=== PATIENT | female | born 1990 | race Caucasian/White ===

== ENCOUNTER 2021-09-07 12:55 | Emergency (ER) | payer MEDICAID, SELFPAY ==
[2021-09-07 13:08] VITALS: BP 122/70; BP 133/71; PULSE 68; PULSE 72; RESP 18; TEMP 37; O2SAT 96; O2SAT 97; BMI 25.7
--- NOTE | 2021-09-07 13:23 | ED.ABDPAIN ---
HPI - Abdominal Pain General Chief Complaint: Abdominal Pain Stated Complaint: NAUSEA AND VOMITING Time Seen by Provider: 09/07/21 13:16 Source: patient Mode of arrival: EMS Limitations: no limitations History of Present Illness HPI narrative: abdominal pain n/v/d wednesday night after going to [facility] MD elicited complaint: abdominal pain Pertinent past history: none Onset (ago): day(s) (yesterday ) Pain Consistency: intermittent Location: diffuse Severity: moderate Quality: cramping Radiation: none Migration to: no migration Exacerbating factors: eating Relieving factors: nothing Context: possible food poisoning and sick contacts (daughter here last night with n/v/d and abdominal pain) Associated symptoms: nausea, vomiting, diarrhea and other (R neck hurts too) Related Data Previous Rx's Medication Instructions Recorded ondansetron 4 mg disintegrating 4 mg PO Q8H PRN #20 tab 09/07/21 tablet Allergies Allergy/AdvReac Type Severity Reaction Status Date / Time naproxen Allergy Hives Verified 09/07/21 13:08 Review of Systems Review of Systems Constitutional : No Weight loss, No Fever, No Chills ENT/Mouth : No sore throat, No Rhinorrhea Eyes: No Swelling, No Redness Cardiovascular : No Chest Pain, No SOB, NoEdema Respiratory : No Cough, No Sputum, No Wheezing Gastrointestinal : Positive Nausea, Positive Vomiting, positive Diarrhea, positive abdominal Pain, No Hematochezia, No Melena Genitourinary : No Dysuria, No Urinary Frequency, No Hematuria, No Urgency Musculoskeletal : No joint pain, No Myalgias, No Joint Swelling, pos R neck pain Skin : No Skin Lesions, No rash Neuro : No Weakness, No Numbness, No Dizziness, No Headache Psych : No Anxiety/Panic, No Depression Heme/Lymph: No Bruising, No Lymphadenopathy Endocrine : No Polyuria, No Polydipsia All other systems reviewed and are negative. [facility] Past Medical History Attestation statement: The following information was validated with the patient. Medical History No pertinent past medical history Surgical History S/P cholecystectomy Social History Social History (Updated 09/07/21 @ 13:31 by Arianna Enrique DO) Patient Tobacco Use Status: Never used Tobacco Substance Use Type: Marijuana Advance Directives: No Physical Exam ED Vital Signs: Vital Signs - 24 hr 09/07/21 13:08 Temperature 98.6 F Pulse Rate 72 Respiratory Rate 18 Blood Pressure 133/71 Pulse Oximetry 97 BMI result Body Mass Index 25.7 Appearance: Alert. Oriented X3. No acute distress. Eyes: Pupils equal, round and reactive to light. ENT: Pharynx mildly dry MM Neck: Normal inspection. Neck supple. ttp over R trapezius with spasm reproduces pain CVS: Normal heart rate and rhythm. Pulses normal. Respiratory: No respiratory distress. Breath sounds normal. Abdomen: Soft and ttp in epigastric area no rebound Skin: Skin warm and dry. Normal skin color. Normal skin turgor. Extremities: No lower extremity edema. No calf ttp Neuro: Oriented X 3. No motor deficit. No sensory deficit. Course Course Course Narrative: can tolerate PO stable for DC MDM - Abdominal Pain MDM Narrative Medical decision making narrative: 31 yo female with no sig PMH comes in with c/o abdominal pain n/v/d after going to [facility] on Wednesday she also notes that her daughter was seen last night for the same - most likely viral illness will need labs, IVF, UA and test. Dispo per results and findings. No localized ttp to suggest appendicitis. Neck pain is likely MSK in nature as it is reproduceable with movements and palpation. Lab Data Result diagrams: 09/07/21 13:49 09/07/21 13:49 Labs: Lab Results 09/07/21 09/07/21 09/07/21 Range/Units 13:49 13:49 13:49 WBC 16.8 H (4.8-10.8) X10*3/uL RBC 5.03 (4.20-5.50) X10*6/uL Hgb 15.4 (12.0-16.0) g/dl Hct 44.7 (37.0-47.0) % MCV 88.9 (80.0-98.0) fL MCH 30.6 (27.0-33.0) pg MCHC 34.5 (31.0-35.0) g/dl RDW 12.7 (11.0-16.0) % Plt Count 309 (160-400) X10*3/uL MPV 10.0 (9.4-12.3) fL Immature Gran % (Auto) 0.5 H (0.0-0.4) % Neut % (Auto) 75.6 H (45-73) % Lymph % (Auto) 16.7 L (20-40) % [place] % (Auto) 6.6 (2-11) % Eos % (Auto) 0.1 (0-4) % Baso % (Auto) 0.5 (0-2) % Lymph # (Auto) 2.8 (1.2-4.9) X10*3/uL [place] # (Auto) 1.1 (0.1-1.2) X10*3/uL Eos # (Auto) 0.0 (0.0-0.4) X10*3/uL Baso # (Auto) 0.1 (0.0-0.2) X10*3/uL Abs Immat Gran (auto) 0.08 H (0.00-0.03) X10*3/uL Absolute Neuts (auto) 12.7 H (2.0-8.3) x10*3/uL Absolute Nucleated RBC 0.000 (0.0-0.012) X10*3/uL Nucleated RBC % (auto) 0.0 (0.0-0.2) /100WBC Sodium 140 (135-145) mmol/L Potassium 3.1 L (3.3-5.1) mmol/L Chloride 99 (96-108) mmol/L Carbon Dioxide 27 (22-29) mmol/L Anion Gap 17 (12-20) BUN 14 (9-16) mg/dL Creatinine 0.88 (0.5-1.4) mg/dL Estim Creat Clear Calc 71.7 Estimated GFR > 60 Random Glucose 92 (60-115) mg/dL Calcium 10.0 (8.4-10.2) mg/dL Magnesium 2.3 (1.6-2.6) mg/dL Total Bilirubin 1.2 H (0.0-1.0) mg/dL Direct Bilirubin 0.4 (0.0-0.5) mg/dL AST 29 (5-31) U/L ALT 53 H (0-31) U/L Alkaline Phosphatase 91 (39-117) U/L Total Protein 8.1 H (6.5-8.0) g/dL Albumin 4.9 (3.5-5.0) g/dL Lipase 10 (8-78) U/L Beta HCG, Quant < 2 mIU/mL Urine Color Urine Appearance Urine pH (5.0-8.0) Ur Specific [place] (1.005-1.025) Urine Protein (NEG-TRACE) MG/DL Urine Glucose (UA) (NEG) MG/DL Urine Ketones (NEG) MG/DL Urine Blood (NEG) Urine Nitrite (NEG) Ur Leukocyte Esterase (NEG) Urine RBC (0) /HPF Urine WBC (0-4) /HPF Ur Squamous Epith Cells /LPF Urine Bacteria /LPF COVID-19 ([facility]IE) Negative (Negative) COVID-19 Clin Com See Note 09/07/21 Range/Units 13:49 WBC (4.8-10.8) X10*3/uL RBC (4.20-5.50) X10*6/uL Hgb (12.0-16.0) g/dl Hct (37.0-47.0) % MCV (80.0-98.0) fL MCH (27.0-33.0) pg MCHC (31.0-35.0) g/dl RDW (11.0-16.0) % Plt Count (160-400) X10*3/uL MPV (9.4-12.3) fL Immature Gran % (Auto) (0.0-0.4) % Neut % (Auto) (45-73) % Lymph % (Auto) (20-40) % [place] % (Auto) (2-11) % Eos % (Auto) (0-4) % Baso % (Auto) (0-2) % Lymph # (Auto) (1.2-4.9) X10*3/uL [place] # (Auto) (0.1-1.2) X10*3/uL Eos # (Auto) (0.0-0.4) X10*3/uL Baso # (Auto) (0.0-0.2) X10*3/uL Abs Immat Gran (auto) (0.00-0.03) X10*3/uL Absolute Neuts (auto) (2.0-8.3) x10*3/uL Absolute Nucleated RBC (0.0-0.012) X10*3/uL Nucleated RBC % (auto) (0.0-0.2) /100WBC Sodium (135-145) mmol/L Potassium (3.3-5.1) mmol/L Chloride (96-108) mmol/L Carbon Dioxide (22-29) mmol/L Anion Gap (12-20) BUN (9-16) mg/dL Creatinine (0.5-1.4) mg/dL Estim Creat Clear Calc Estimated GFR Random Glucose (60-115) mg/dL Calcium (8.4-10.2) mg/dL Magnesium (1.6-2.6) mg/dL Total Bilirubin (0.0-1.0) mg/dL Direct Bilirubin (0.0-0.5) mg/dL AST (5-31) U/L ALT (0-31) U/L Alkaline Phosphatase (39-117) U/L Total Protein (6.5-8.0) g/dL Albumin (3.5-5.0) g/dL Lipase (8-78) U/L Beta HCG, Quant mIU/mL Urine Color YELLOW Urine Appearance CLOUDY Urine pH 6.5 (5.0-8.0) Ur Specific [place] 1.020 (1.005-1.025) Urine Protein TRACE (NEG-TRACE) MG/DL Urine Glucose (UA) NEG (NEG) MG/DL Urine Ketones 5 (NEG) MG/DL Urine Blood TRACE (NEG) Urine Nitrite NEG (NEG) Ur Leukocyte Esterase NEG (NEG) Urine RBC 0-2 (0) /HPF Urine WBC 1-4 (0-4) /HPF Ur Squamous Epith Cells 4+ /LPF Urine Bacteria 4+ /LPF COVID-19 ([facility]) (Negative) COVID-19 Clin Com Discharge Plan Discharge Clinical Impression: Trapezius muscle spasm, Hypokalemia Vomiting Qualifiers: Vomiting type: unspecified Nausea presence: with nausea Qualified Code(s): R11.2 - Nausea with vomiting, unspecified Diarrhea Qualifiers: Diarrhea type: unspecified type Qualified Code(s): R19.7 - Diarrhea, unspecified Leukocytosis Qualifiers: Leukocytosis type: unspecified Qualified Code(s): D72.829 - Elevated white blood cell count, unspecified Patient Disposition: Home, Self-Care Instructions: Hypokalemia (ED), Acute Nausea and Vomiting (ED), Acute Diarrhea (ED), Acute Abdominal Pain (ED) Additional Instructions: return to ED for any worsening symptoms or concerns avoid dairy for 5 days Prescriptions: New ondansetron 4 mg tablet,disintegrating 4 mg PO Q8H PRN (Reason: nausea and vomiting) Qty: 20 0RF Stand Alone Forms: Work/School Release
[2021-09-07 13:55] LABS: Basophils Absolute Auto 0.1 X10*3/uL (0.0-0.2); Basophils Percent Auto 0.5 % (0-2); Eosinophils Percent Auto 0.1 % (0-4); Hematocrit 44.7 % (37.0-47.0); Hemoglobin 15.4 g/dl (12.0-16.0); Imm Gran Abs Auto 0.08 X10*3/uL (0.00-0.03); Imm Gran Pct Auto 0.5 % (0.0-0.4); Lymphocytes Absolute Auto 2.8 X10*3/uL (1.2-4.9); Lymphocytes Percent Auto 16.7 % (20-40); MANUAL DIFF FLAG NO; Mean Corpuscular HGB Conc 34.5 g/dl (31.0-35.0); Mean Corpuscular Hemoglobin 30.6 pg (27.0-33.0); Mean Corpuscular Volume 88.9 fL (80.0-98.0); Monocytes Absolute Auto 1.1 X10*3/uL (0.1-1.2); Monocytes Percent Auto 6.6 % (2-11); Neutrophils Absolute Auto 12.7 x10*3/uL (2.0-8.3); Neutrophils Percent Auto 75.6 % (45-73); Platelet Count 309 X10*3/uL (160-400); Red Blood Count 5.03 X10*6/uL (4.20-5.50); Red Cell Distribution Width 12.7 % (11.0-16.0); White Blood Count 16.8 X10*3/uL (4.8-10.8)
[2021-09-07 13:56] LABS: Appearance Urine CLOUDY; Color Urine YELLOW; Glucose Urine UA NEG (NEG); Leukocyte Esterase Urine NEG (NEG); Nitrite Urine NEG (NEG); PH 6.5 (5.0-8.0); UACC Culture Trigger NO; Urine Blood TRACE (NEG); Urine Ketones 5 MG/DL (NEG); Urine Protein TRACE MG/DL (NEG-TRACE)
[2021-09-07 14:06] LABS: Bacteria Urine 4+ /LPF; RBC Urine 0-2 /HPF (0); Squamous Epithelial Cell Urine 4+ /LPF
[2021-09-07 14:11] LABS: COVID-19 Test Negative (Negative)
[2021-09-07] MEDS: diphenhydrAMINE HCL 50 MG/ML VIAL 25 MG IVPUSH (14:15)
[2021-09-07] MEDS: 0.9 % Sodium Chloride 1,000 ML 999 ML IVCONT ×2 (14:15→15:29)
[2021-09-07] MEDS: Famotidine/PF 20 MG/2 ML VIAL IVPUSH (14:15)
[2021-09-07] MEDS: Metoclopramide HCl 10 MG/2 ML VIAL IVPUSH (14:15)
[2021-09-07 14:21] LABS: Alanine Aminotransferase 53 U/L (0-31); Albumin Level 4.9 g/dL (3.5-5.0); Alkaline Phosphatase 91 U/L (39-117); Anion Gap 17 (12-20); Aspartate Amino Transferase 29 U/L (5-31); Bilirubin Direct 0.4 mg/dL (0.0-0.5); Bilirubin Total 1.2 mg/dL (0.0-1.0); Blood Urea Nitrogen 14 mg/dL (9-16); Carbon Dioxide 27 mmol/L (22-29); Chloride 99 mmol/L (96-108); Creatinine Clr Calc Pharmacy 71.7; Estimated Glomerular Filt Rate > 60; Glucose Random 92 mg/dL (60-115); Lipase 10 U/L (8-78); Magnesium 2.3 mg/dL (1.6-2.6); Potassium 3.1 mmol/L (3.3-5.1); Sodium 140 mmol/L (135-145); Total Protein 8.1 g/dL (6.5-8.0)
[2021-09-07 14:27] LABS: HCG Quantitative < 2 mIU/mL
[2021-09-07] MEDS: Potassium Chloride Packet 20 MEQ PACKET 40 MEQ PO (15:28)
[2021-09-07 15:38] VITALS: BP 102/67; PULSE 62; RESP 18; TEMP 37.2; O2SAT 100
== END 2021-09-07 17:42 | disposition home or self-care (01) ==
PROVIDERS: Emergency Provider Emergency Medicine
DX: M62.830 Muscle spasm of back (principal); E87.6 Hypokalemia; R11.2 Nausea with vomiting, unspecified; D72.89 Other specified disorders of white blood cells; M54.2 Cervicalgia; R19.7 Diarrhea, unspecified; Z20.822 Contact with and (suspected) exposure to COVID-19; Z79.899 Other long term (current) drug therapy
CPT/HCPCS: 80048; 80076; 81001; 83690; 83735; 84702; 85025; 87635; 96374; 96376; 99283; 99284; J1200; J2765

== ENCOUNTER 2024-01-04 20:28 | Emergency (ER) | payer OTHER, SELFPAY ==
[2024-01-04 20:37] VITALS: BP 114/64; BP 115/73; PULSE 115; PULSE 74; PULSE 91; RESP 17; RESP 18; TEMP 36.7; O2SAT 100; O2SAT 114; O2SAT 99; BMI 23.2
[2024-01-04 21:15] LABS: MANUAL DIFF FLAG NO
[2024-01-04 21:28] LABS: Basophils Absolute Auto 0.1 X10*3/uL (0.0-0.2); Basophils Percent Auto 0.8 % (0-2); Eosinophils Absolute Auto 0.1 X10*3/uL (0.0-0.4); Eosinophils Percent Auto 0.7 % (0-4); Hematocrit 43.8 % (37.0-47.0); Hemoglobin 15.2 g/dl (12.0-16.0); Imm Gran Abs Auto 0.05 X10*3/uL (0.00-0.03); Imm Gran Pct Auto 0.4 % (0.0-0.4); Lymphocytes Absolute Auto 2.7 X10*3/uL (1.2-4.9); Lymphocytes Percent Auto 20.9 % (20-40); Mean Corpuscular HGB Conc 34.7 g/dl (31.0-35.0); Mean Corpuscular Hemoglobin 30.8 pg (27.0-33.0); Mean Corpuscular Volume 88.8 fL (80.0-98.0); Mean Platelet Volume 10.1 fL (9.4-12.3); Monocytes Absolute Auto 0.8 X10*3/uL (0.1-1.2); Monocytes Percent Auto 6.1 % (2-11); Neutrophils Absolute Auto 9.1 x10*3/uL (2.0-8.3); Neutrophils Percent Auto 71.1 % (45-73); Platelet Count 253 X10*3/uL (160-400); Red Blood Count 4.93 X10*6/uL (4.20-5.50); Red Cell Distribution Width 12.6 % (11.0-16.0); White Blood Count 12.7 X10*3/uL (4.8-10.8)
[2024-01-04 21:54] LABS: Alanine Aminotransferase 13 U/L (0-31); Albumin Level 4.6 g/dL (3.5-5.0); Alkaline Phosphatase 82 U/L (39-117); Anion Gap 15 (12-20); Aspartate Amino Transferase 12 U/L (5-31); Bilirubin Total 0.5 mg/dL (0.0-1.0); Blood Urea Nitrogen 13 mg/dL (9-16); Calcium 9.4 mg/dL (8.4-10.2); Carbon Dioxide 20 mmol/L (22-29); Chloride 108 mmol/L (96-108); Estimated Glomerular Filt Rate > 60; Glucose Random 98 mg/dL (60-115); Potassium 3.6 mmol/L (3.3-5.1); Sodium 139 mmol/L (135-145); Total Protein 7.6 g/dL (6.5-8.0)
--- NOTE | 2024-01-04 23:11 | PC.NURSE ---
pt asking, when the doctor will come see her, states, I am in a lot of pain . Informed the pt, that one of the providers, will be in to see her as soon as possible. Asked pt, about urine sample. Pt states, she is unable to pee at this time.
--- NOTE | 2024-01-04 23:16 | ED.ABDPAIN ---
HPI - Abdominal Pain General Chief Complaint: Abdominal Pain Stated Complaint: abd pain Time Seen by Provider: 01/04/24 23:13 Source: patient Mode of arrival: ambulatory Limitations: no limitations History of Present Illness ED Provider: marianela ENRIQUE narrative: Patient comes here for chronic lower abdominal pain for last few years got worse for last 1 week no nausea no vomiting no diarrhea patient has smokes marijuana and feels better after hot shower pain is cramping in nature gets worse when she eats spicy foods Related Data Previous Rx's ?Medication ?Instructions ?Recorded ondansetron 4 mg disintegrating 4 mg PO Q8H PRN nausea and 09/07/21 tablet vomiting #20 tabs dicyclomine 20 mg tablet 20 mg PO QID PRN abdominal pain 01/05/24 #20 tabs Allergies Allergy/AdvReac Type Severity Reaction Status Date / Time naproxen Allergy Hives Verified 01/04/24 20:41 Review of Systems Review of Systems Yes all other systems are reviewed and are negative PMFSH Past Medical History Medical History No pertinent past medical history Surgical History S/P cholecystectomy Social History Social History Patient Tobacco Use Status: Never used Tobacco Smoked in Last 30 Days: Yes Use of substances other than those prescribed or required for medical reasons: Yes Substance Use Type: Marijuana Substance Use Frequency: Chronic Longstanding Last Used Substance: Just Prior to Admission Advance Directives: No Advance Directives Information Provided: No Do you have a plan to hurt others: No Plan Physical Exam ED Vital Signs: Vital Signs - 24 hr 01/04/24 20:37 01/04/24 20:37 01/04/24 23:50 Temperature 98.1 F 98.1 F Pulse Rate 74 115 H Respiratory Rate 17 18 18 Blood Pressure 115/73 115/73 Pulse Oximetry 99 100 Oxygen Delivery Method Room Air Room Air BMI result Body Mass Index 23.2 Appearance: Alert. Oriented X3. No acute distress. Eyes: No pallor or icterus ENT: Pharynx normal. Oral Mucosa moist Neck: Normal inspection. Neck supple. CVS: Normal heart rate and rhythm. Pulses normal. Respiratory: No respiratory distress. Equal air entry bilateral, no wheezing/rales/rhonchi Abdomen: Soft and mild suprapubic discomfort no rebound tenderness or guarding Bowel sounds are present, no mass palpable, no CVA tenderness Skin: Skin warm and dry. Normal skin color. Normal skin turgor. Extremities: No lower extremity edema. No calf tenderness Neuro: Oriented X 3. Medical Decision Making Medical Decision Making [facility] Narrative: Patient has chronic pain workup stable likely patient has IBS will prescribe Bentyl patient responded Differential Diagnosis Differential Diagnoses: The differential diagnosis associated with the presentation includes IBS/UTI/ovarian cyst/cannabis induced pain Lab Data [facility] Lab Attestation statement: I reviewed the patient's lab results. 01/04/24 21:11 01/04/24 21:11 Labs: Lab Results 01/04/24 01/04/24 Range/Units 21:11 23:31 WBC 12.7 H (4.8-10.8) X10*3/uL RBC 4.93 (4.20-5.50) X10*6/uL Hgb 15.2 (12.0-16.0) g/dl Hct 43.8 (37.0-47.0) % MCV 88.8 (80.0-98.0) fL MCH 30.8 (27.0-33.0) pg MCHC 34.7 (31.0-35.0) g/dl RDW 12.6 (11.0-16.0) % Plt Count 253 (160-400) X10*3/uL MPV 10.1 (9.4-12.3) fL Immature Gran % (Auto) 0.4 (0.0-0.4) % Neut % (Auto) 71.1 (45-73) % Lymph % (Auto) 20.9 (20-40) % [place] % (Auto) 6.1 (2-11) % Eos % (Auto) 0.7 (0-4) % Baso % (Auto) 0.8 (0-2) % Lymph # (Auto) 2.7 (1.2-4.9) X10*3/uL [place] # (Auto) 0.8 (0.1-1.2) X10*3/uL Eos # (Auto) 0.1 (0.0-0.4) X10*3/uL Baso # (Auto) 0.1 (0.0-0.2) X10*3/uL Abs Immat Gran (auto) 0.05 H (0.00-0.03) X10*3/uL Absolute Neuts (auto) 9.1 H (2.0-8.3) x10*3/uL Absolute Nucleated RBC 0.000 (0.0-0.012) X10*3/uL Nucleated RBC % (auto) 0.0 (0.0-0.2) /100WBC Sodium 139 (135-145) mmol/L Potassium 3.6 (3.3-5.1) mmol/L Chloride 108 (96-108) mmol/L Carbon Dioxide 20 L (22-29) mmol/L Anion Gap 15 (12-20) BUN 13 (9-16) mg/dL Creatinine 0.86 (0.5-1.4) mg/dL Estim Creat Clear Calc 68.0 Estimated GFR > 60 Random Glucose 98 (60-115) mg/dL Calcium 9.4 (8.4-10.2) mg/dL Total Bilirubin 0.5 (0.0-1.0) mg/dL AST 12 (5-31) U/L ALT 13 (0-31) U/L Alkaline Phosphatase 82 (39-117) U/L Total Protein 7.6 (6.5-8.0) g/dL Albumin 4.6 (3.5-5.0) g/dL Urine Color Yellow Urine Appearance Turbid Urine pH 5.5 (5.0-9.0) Ur Specific [place] >= 1.030 H (1.005-1.025) Urine Protein Trace (Neg-Trace) mg/dL Urine Glucose (UA) Negative (Negative) mg/dL Urine Ketones 15 (Negative) mg/dL Urine Blood Negative (Negative) Urine Nitrite Negative (Negative) Ur Leukocyte Esterase Small (1+) H (Negative) Urine RBC 0-2 (0-2) /HPF Urine WBC 6-10 (0-5) /HPF Ur Squamous Epith Cells >20 (0-2) /HPF Urine Bacteria 4+ (None Seen) Hyaline Casts 0-2 (0-2) /LPF Urine Test NEGATIVE (NEGATIVE) Medications Administered Discontinued Medications Generic Name Dose Route Start Last Admin Trade Name Freq PRN Reason Stop Dose Admin Dicyclomine HCl 20 mg 01/04/24 23:28 01/04/24 23:42 Dicyclomine Hcl 10 Mg Capsule PO 01/04/24 23:29 20 mg ONCE ONE Administration Discharge Plan Discharge Clinical Impression: Abdominal pain, Irritable bowel syndrome Patient Disposition: Home, Self-Care Instructions: Irritable Bowel Syndrome (ED), Abdominal Pain (ED) Additional Instructions: Likely pain is from irritable bowel syndrome and possibly marijuana making it worse Do not smoked marijuana Pain medication as prescribed Prescriptions: New dicyclomine 20 mg tablet 20 mg PO QID PRN (Reason: abdominal pain) Qty: 20 0RF No Action ondansetron 4 mg tablet,disintegrating 4 mg PO Q8H PRN (Reason: nausea and vomiting) Qty: 20 0RF Print Language: Bulgarian
[2024-01-04 23:41] LABS: Appearance Urine Turbid; Color Urine Yellow; Glucose Urine UA Negative (Negative); Leukocyte Esterase Urine Small (1+) (Negative); Nitrite Urine Negative (Negative); PH 5.5 (5.0-9.0); Specific Gravity - Urine >= 1.030 (1.005-1.025); UMIC TRIGGER UACC YES; Urine Blood Negative (Negative); Urine Ketones 15 mg/dL (Negative); Urine Protein Trace mg/dL (Neg-Trace)
[2024-01-04] MEDS: Dicyclomine HCl 10 MG CAPSULE 20 MG PO (23:42)
[2024-01-04 23:43] LABS: UPreg QC Valid YES; Urine Pregnancy NEGATIVE (NEGATIVE)
[2024-01-04 23:50] VITALS: RESP 18
[2024-01-04 23:53] LABS: Bacteria Urine 4+ (None Seen); Hyaline Casts Urine 0-2 /LPF (0-2); RBC Urine 0-2 /HPF (0-2); Squamous Epithelial Cell Urine >20 /HPF (0-2); UACC Culture Trigger YES
[2024-01-05 00:35] VITALS: BP 122/69; PULSE 85; RESP 18; TEMP 36.7; O2SAT 99
== END 2024-01-05 00:34 | disposition home or self-care (01) ==
PROVIDERS: Emergency Provider Internal Medicine
DX: R10.30 Lower abdominal pain, unspecified (principal); K58.9 Irritable bowel syndrome, unspecified; F12.90 Cannabis use, unspecified, uncomplicated
CPT/HCPCS: 36415; 80053; 81001; 81025; 85025; 87086; 87147; 99283; 99284

== ENCOUNTER 2024-04-15 12:15 | Emergency (ER) | payer MEDICAID, SELFPAY ==
--- NOTE | ~2024-04-15 | US_ITS ---
EXAMINATION: US PELVIS CLINICAL INFORMATION: Lower pelvic pain COMPARISON: None available. TECHNIQUE: Ultrasound of the pelvis is performed using both transabdominal transducers along with Doppler. Transvaginal imaging is performed due to inadequate visualization transabdominally. FINDINGS: Uterus: Evaluation of uterus is limited due to bowel gas distribution and utilizing positioning. The uterus measured 8.6 x 4.0 cm. The double wall endometrial thickness is 0.7 mm. The uterus is smooth in contour and has normal myometrial echogenicity. No visible fibroid. Adnexa: Both ovaries are visualized. There is normal color flow to the adnexa. There is no ovarian torsion. There is no pelvic ascites or fluid collection. Right ovary measures 4.8 x 4.2 x 4.0 cm. With a volume of 42.22 mL There is 2.6 x 1.8 x 2.1 cm cyst Left ovary measures not seen US/US pelvic complete IMPRESSION: Technically limited study revealed single right ovary with limited evaluation of uterus and nonvisualization of left ovary Electronically signed by: Chucho Sánchez MD 04/15/2024 03:55 PM EDT
--- NOTE | ~2024-04-15 | CT_ITS ---
EXAMINATION: CT ABDOMEN AND PELVIS WITH CONTRAST CLINICAL INFORMATION: Right lower quadrant pain COMPARISON: None available. TECHNIQUE: Multidetector volumetric images were obtained from the superior aspect of the liver through the pubic symphysis following administration 85 mL of Omnipaque 350 intravenous contrast. Sagittal and coronal reformatted images were obtained on the technologist's workstation. Oral contrast: No This CT examination was performed using dose optimization techniques as appropriate, variously including the following: *Automated exposure control *Adjustment of mA and/or kV according to patient size (this includes techniques or standardized protocols for targeted exams where dose is matched to indication/reason for exam; i.e. extremities or head) *Use of iterative reconstruction technique DLP: 363 mGy-cm FINDINGS: LUNG BASES: The visualized lung bases are unremarkable. LIVER, GALLBLADDER, AND BILIARY TREE: The liver is normal in size, shape, and attenuation. No focal hepatic lesion or biliary ductal dilatation is present. Status post cholecystectomy with surgical clips located in the gallbladder fossa. PANCREAS: Unremarkable. SPLEEN: Unremarkable. ADRENAL GLANDS: 9 mm right adrenal nodule measures 50 HU. The left adrenal gland is unremarkable. KIDNEYS AND URETERS: The kidneys are normal in size, shape, and attenuation. No hydronephrosis, hydroureter, or calculi seen. No perinephric stranding. BLADDER: Mildly distended with mild circumferential wall thickening and trace perivesicular stranding. GASTROINTESTINAL TRACT: Hyperemic and thickened rectal wall. The small and remaining large bowel are unremarkable. The appendix is unremarkable. ABDOMINAL WALL: No significant hernia is appreciated. LYMPH NODES: Normal. VASCULAR: Unremarkable. PELVIC VISCERA: Unremarkable uterus. Heterogeneous appearance of the proximal vagina with multiple foci of gas, and surrounding stranding. Multiple bilateral ovarian cysts, largest of which measure 3.3 x 2.1 x 1.8 cm on the right and 2.5 x 2.2 x 3.7 cm on the left. OSSEOUS STRUCTURES: Unremarkable. CT/CT abdomen pelvis w IV con IMPRESSION: 1. Heterogeneous appearance of the proximal vagina with multiple foci of gas and surrounding stranding. Findings are concerning for vaginitis. 2. Hyperemic and thickened rectal wall, which may be seen in proctitis. 3. Mild circumferential wall thickening of the urinary bladder with trace perivesicular stranding, which may be seen in cystitis. Recommend correlation with urinalysis. 4. Multiple bilateral ovarian cysts, largest of which measure 3.3 cm on the right and 3.7 cm on the left. Findings are overwhelmingly likely to represent benign functional cyst. No followup imaging recommended. However, recommend clinical correlation for symptoms of polycystic ovarian syndrome. 5. 9 mm right adrenal nodule. For incidental adrenal adenomas with =<130 HU average density on portal-venous phase contrast enhanced CT examination, findings are overwhelmingly likely to be benign and no followup imaging is recommended. Fleischner guidelines were followed. Electronically signed by: Monie Allen MD 04/15/2024 03:16 PM EDT
--- NOTE | ~2024-04-15 | US_ITS ---
EXAMINATION: US PELVIS CLINICAL INFORMATION: Lower pelvic pain COMPARISON: None available. TECHNIQUE: Ultrasound of the pelvis is performed using both transabdominal transducers along with Doppler. Transvaginal imaging is performed due to inadequate visualization transabdominally. FINDINGS: Uterus: Evaluation of uterus is limited due to bowel gas distribution and utilizing positioning. The uterus measured 8.6 x 4.0 cm. The double wall endometrial thickness is 0.7 mm. The uterus is smooth in contour and has normal myometrial echogenicity. No visible fibroid. Adnexa: Both ovaries are visualized. There is normal color flow to the adnexa. There is no ovarian torsion. There is no pelvic ascites or fluid collection. Right ovary measures 4.8 x 4.2 x 4.0 cm. With a volume of 42.22 mL There is 2.6 x 1.8 x 2.1 cm cyst Left ovary measures not seen US/US pelvic ovarian doppler IMPRESSION: Technically limited study revealed single right ovary with limited evaluation of uterus and nonvisualization of left ovary Electronically signed by: Chucho Sánchez MD 04/15/2024 03:55 PM EDT
[2024-04-15 12:23] VITALS: BP 121/79; BP 132/98; PULSE 70; PULSE 88; RESP 20; TEMP 36.4; O2SAT 94; O2SAT 97; BMI 23.4
[2024-04-15] MEDS: ondansetron HCL 4 MG/2 ML VIAL IVPUSH (12:37)
[2024-04-15 12:38] LABS: MANUAL DIFF FLAG NO
[2024-04-15 12:39] LABS: Basophils Absolute Auto 0.1 X10*3/uL (0.0-0.2); Basophils Percent Auto 1.1 % (0-2); Eosinophils Percent Auto 0.4 % (0-4); Hematocrit 45.1 % (37.0-47.0); Hemoglobin 15.9 g/dl (12.0-16.0); Imm Gran Abs Auto 0.03 X10*3/uL (0.00-0.03); Imm Gran Pct Auto 0.3 % (0.0-0.4); Lymphocytes Absolute Auto 1.7 X10*3/uL (1.2-4.9); Lymphocytes Percent Auto 17.8 % (20-40); Mean Corpuscular HGB Conc 35.3 g/dl (31.0-35.0); Mean Corpuscular Volume 87.9 fL (80.0-98.0); Mean Platelet Volume 9.8 fL (9.4-12.3); Monocytes Absolute Auto 0.7 X10*3/uL (0.1-1.2); Monocytes Percent Auto 6.9 % (2-11); Neutrophils Percent Auto 73.5 % (45-73); Platelet Count 284 X10*3/uL (160-400); Red Blood Count 5.13 X10*6/uL (4.20-5.50); Red Cell Distribution Width 12.7 % (11.0-16.0); White Blood Count 9.5 X10*3/uL (4.8-10.8)
--- NOTE | 2024-04-15 12:42 | PC.NURSE ---
patient a&ox3, iv inserted, labs drawn, pt actively vomiting- pt medicated for nausea. significant other at bedside requesting a test, this nurse explained to him and the patient that prior to getting the CT scan we need a test performed. pt aware we need a urine
--- NOTE | 2024-04-15 12:55 | ED_ITS ---
HPI - Abdominal Pain General Chief Complaint: Abdominal Pain Stated Complaint: R ABD PAIN,VOMITING,SYNCOPE PER EMS Time Seen by Provider: 04/15/24 12:18 Source: patient and EMS Mode of arrival: EMS Limitations: no limitations History of Present Illness ED Provider: Katie MITCHELL HPI narrative: This is a 34-year-old female who denies past medical history presenting to the emergency department for complaints of right-sided abdominal pain, nausea and vomiting since last night. She last ate around 18:00 last night since then has been having nausea, vomiting and abdominal pain. Abdominal pain is localized to the entire right side unable to tell me if it is worse in the upper lower aspect of the right side. She reports she has been smoking marijuana a lot of it all of yesterday. Denies sick contacts. Denies fevers, chills, chest pain, shortness of breath, headache, vision changes, diarrhea, recent travel, blood in stool or vomit. Related Data Previous Rx's ?Medication ?Instructions ?Recorded ondansetron 4 mg disintegrating 4 mg PO Q8H PRN nausea and 09/07/21 tablet vomiting #20 tabs dicyclomine 20 mg tablet 20 mg PO QID PRN abdominal pain 01/05/24 #20 tabs doxycycline hyclate 100 mg capsule 100 mg PO BID 14 days #28 caps 04/15/24 metronidazole 500 mg tablet 500 mg PO BID 14 days #28 tabs 04/15/24 ondansetron 4 mg disintegrating 4 mg PO Q6H PRN nausea and 04/15/24 tablet vomiting #14 tabs Allergies Allergy/AdvReac Type Severity Reaction Status Date / Time naproxen Allergy Hives Verified 04/15/24 12:24 Review of Systems Review of Systems Yes all other systems are reviewed and are negative ON LICENSE OF [facility] Past Medical History Attestation statement: The following information was validated with the patient. Source: old records reviewed and nursing notes reviewed Medical History No pertinent past medical history Surgical History S/P cholecystectomy Social History Social History Alcohol intake: current Alcohol intake frequency: a few times a month Patient Tobacco Use Status: Never used Tobacco Use of substances other than those prescribed or required for medical reasons: Yes Substance Use Type: Marijuana Advance Directives: No Do you have a plan to hurt others: No Plan Patient : No (unsure if ) Physical Exam ED Vital Signs: Vital Signs - 24 hr 04/15/24 12:23 04/15/24 13:56 04/15/24 16:16 Temperature 97.6 F 97.8 F 97.8 F Pulse Rate 88 78 78 Respiratory Rate 20 16 18 Blood Pressure 121/79 103/76 97/58 L Pulse Oximetry 97 97 97 Oxygen Delivery Method Room Air Room Air Room Air BMI result Body Mass Index 23.4 vss Appearance: Alert.? Oriented X3.? No acute distress.? Patient dry heaving and vomiting throughout exam. Head: Normocephalic, atraumatic, no step-offs or deformities Eyes: Pupils equal, round and reactive to light.? ENT: Pharynx normal.? Neck: Normal inspection.? Neck supple.? CVS: Normal heart rate and rhythm.? Pulses normal.? Respiratory: No respiratory distress.? Breath sounds normal.? Abdomen: Soft and diffuse abdominal discomfort worse to the right side of abdomen..? Skin: Skin warm and dry.? Normal skin color.? Normal skin turgor.? Extremities: No lower extremity edema.? No calf ttp. 5/5 strength to bilateral upper and lower extremities Neuro: Oriented X 3.? No motor deficit.? No sensory deficit. CN 2-12 intact Course Reevaluation(s) Reevaluation #1: CBC unremarkable. Chemistry with no acute findings needing intervention. Patient's lipase normal. Beta hCG negative. CT abdomen and pelvis and urine pending. Patient agrees to prophylactic treatment for gonorrhea, chlamydia and trichomonas. 500mg IM ceftriaxone has been given here and scripts for doxycycline 100 mg po BID X 7 days and metronidazole 500 mg po BID X 7 days have been given to the patient. Educated on safe sex practices, full pannel STD testing and speaking to? partners on possible STD. Time: 15:18 Reevaluation #2: Patient's CT abdomen and pelvis heterogeneous appearance of the proximal vagina with multiple foci of gas and surrounding stranding findings concerning for vaginitis. Hyperemic and thickened rectal wall maybe seen in proctitis. Mild circumferential wall thickening of the urinary bladder with trace perivesicular stranding which can be seen in cystitis. Bilateral ovarian cysts noted. 9 mm right adrenal nodule also noted. Will order transvaginal ultrasound with Doppler to further evaluate these symptoms. Will start patient on ceftriaxone, doxycycline and metronidazole ( covering PID) Ordered swabs patient can self swab Time: 15:26 Reevaluation #3: Patient feeling better tollerating PO Time: 16:25 Medical Decision Making Medical Decision Making [facility] Narrative: [id number] 34-year-old female presents with nausea, vomiting and right-sided abdominal pain ongoing since last night. Physical exam right-sided abdominal tenderness on exam. Patient dry heaving in actively vomiting. History and physical exam concerning for cyclic vomiting versus viral illness versus gastroenteritis. Unlikely appendicitis, cholecystitis, obstruction, pancreatitis, diverticulitis. Will rule out metabolic derangements and . Plan labs, imaging, urine Differential Diagnosis Differential Diagnoses: The differential diagnosis associated with the presentation includes (History and physical exam concerning for cyclic vomiting versus viral illness versus gastroenteritis. Unlikely appendicitis, cholecystitis, obstruction, pancreatitis, diverticulitis. Will rule out metabolic derangements and .) Admission/Observation Consideration of admission/observation: Escalation of care including admission/observation considered Lab Data [facility] Lab Attestation statement: I reviewed the patient's lab results. 04/15/24 12:35 04/15/24 13:10 Labs: Lab Results 04/15/24 04/15/24 Range/Units 12:35 13:10 WBC 9.5 (4.8-10.8) X10*3/uL RBC 5.13 (4.20-5.50) X10*6/uL Hgb 15.9 (12.0-16.0) g/dl Hct 45.1 (37.0-47.0) % MCV 87.9 (80.0-98.0) fL MCH 31.0 (27.0-33.0) pg MCHC 35.3 H (31.0-35.0) g/dl RDW 12.7 (11.0-16.0) % Plt Count 284 (160-400) X10*3/uL MPV 9.8 (9.4-12.3) fL Immature Gran % (Auto) 0.3 (0.0-0.4) % Neut % (Auto) 73.5 H (45-73) % Lymph % (Auto) 17.8 L (20-40) % Spencer % (Auto) 6.9 (2-11) % Eos % (Auto) 0.4 (0-4) % Baso % (Auto) 1.1 (0-2) % Lymph # (Auto) 1.7 (1.2-4.9) X10*3/uL Spencer # (Auto) 0.7 (0.1-1.2) X10*3/uL Eos # (Auto) 0.0 (0.0-0.4) X10*3/uL Baso # (Auto) 0.1 (0.0-0.2) X10*3/uL Abs Immat Gran (auto) 0.03 (0.00-0.03) X10*3/uL Absolute Neuts (auto) 7.0 (2.0-8.3) x10*3/uL Absolute Nucleated RBC 0.000 (0.0-0.012) X10*3/uL Nucleated RBC % (auto) 0.0 (0.0-0.2) /100WBC Sodium 143 (135-145) mmol/L Potassium 3.8 (3.3-5.1) mmol/L Chloride 108 (96-108) mmol/L Carbon Dioxide 24 (22-29) mmol/L Anion Gap 15 (12-20) BUN 10 (9-16) mg/dL Creatinine 0.75 (0.5-1.4) mg/dL Estim Creat Clear Calc 78.3 Estimated GFR > 60 Random Glucose 105 (60-115) mg/dL Calcium 10.1 D (8.4-10.2) mg/dL Total Bilirubin 0.4 (0.0-1.0) mg/dL AST 17 (5-31) U/L ALT 26 (0-31) U/L Alkaline Phosphatase 79 (39-117) U/L Total Protein 8.0 (6.5-8.0) g/dL Albumin 4.8 (3.5-5.0) g/dL Lipase 17 (8-78) U/L Beta HCG, Quant < 2 mIU/mL Independent Interpretation I performed an independent interpretation of an: CT Scan Radiology Impression Discussion of test interpretation with radiology: I have reviewed the radiologist's reading. External Record Review External record reviewed: Outpatient record Chronic Conditions Patient?s care impacted by: Other (See HPI) Medications Administered Discontinued Medications Generic Name Dose Route Start Last Admin Trade Name Braxton PRN Reason Stop Dose Admin Diphenhydramine HCl 25 mg 04/15/24 13:20 04/15/24 13:24 Diphenhydramine Hcl 50 Mg/Ml Vial IVPUSH 04/15/24 13:21 25 mg ONCE ONE Administration Haloperidol Lactate 2 mg 04/15/24 13:01 04/15/24 14:16 Haloperidol Lactate 5 Mg/Ml Vial IVPUSH 04/15/24 13:02 2 mg ONCE ONE Administration Iohexol 100 ml 04/15/24 14:43 04/15/24 14:44 Iohexol 350 Mg/Ml 100 Ml Infus..Btl IV 04/15/24 14:44 85 ml ONCE ONE Administration Metoclopramide HCl 10 mg 04/15/24 13:20 04/15/24 13:24 Metoclopramide Hcl 10 Mg/2 Ml Vial IVPUSH 04/15/24 13:21 10 mg ONCE ONE Administration Ondansetron HCl 4 mg 04/15/24 12:23 04/15/24 12:37 Ondansetron Hcl 4 Mg/2 Ml Vial IVPUSH 04/15/24 12:24 4 mg ONCE ONE Administration Critical Care Time Critical Care Time Critical Care Time: Yes Total Critical Care Time: 35 Attestation: I attest to this time spent taking care of the patient, obtaining history, physical, reviewing labs, imaging, treatment of patients condition +/- specialist/hospitalist consult Discharge Plan Discharge Clinical Impression: Abdominal pain, Nausea & vomiting, Vaginitis, Trichomonal infection, Acute pelvic inflammatory disease (PID) Patient Disposition: Home, Self-Care Instructions: Sexually Transmitted Diseases (ED), Trichomoniasis (ED), Acute Nausea and Vomiting (ED), Abdominal Pain (ED), Vaginal Discharge (ED) Additional Instructions: Take your medications as prescribed. If you were prescribed antibiotics today, it is important that you take your medication to their entirety, do not skip any doses, do not finish them early. Follow-up with your primary care provider this week. Return to the emergency department with new or worsening symptoms. Such as fevers, chills, chest pain, shortness of breath, nausea, vomiting, dizziness, headache, vision changes, lethargy In case of emergency call 911 You were treated here today with ceftriaxone, a medication that treats gonorrhea. I have sent to your pharmacy Metronidazole that covers trichomonas, and Doxycycline which covers for chlamydia. Please be reevaluated by a healthcare provider after completing your antibiotics. Do not stop them early, do not skip any doses. Until you are reevaluated by a health care provider please practice safe sex as disucussed. Please also have a conversation with your sexual partners.? I also advise you to obtain full panel STD testing to test for other STDs including HIV, Hepatitis B & C and syphilis with your PCP or a local clinic. US/US pelvic ovarian doppler IMPRESSION: Adnexa: Both ovaries are visualized. There is normal color flow to the adnexa. There is no ovarian torsion. There is no pelvic ascites or fluid collection. Right ovary measures 4.8 x 4.2 x 4.0 cm. With a volume of 42.22 mL There is 2.6 x 1.8 x 2.1 cm cyst Left ovary measures not seen Technically limited study revealed single right ovary with limited evaluation of uterus and nonvisualization of left ovary CT/CT abdomen pelvis w IV con IMPRESSION: 1. Heterogeneous appearance of the proximal vagina with multiple foci of gas and surrounding stranding. Findings are concerning for vaginitis. 2. Hyperemic and thickened rectal wall, which may be seen in proctitis. 3. Mild circumferential wall thickening of the urinary bladder with trace perivesicular stranding, which may be seen in cystitis. Recommend correlation with urinalysis. 4. Multiple bilateral ovarian cysts, largest of which measure 3.3 cm on the right and 3.7 cm on the left. Findings are overwhelmingly likely to represent benign functional cyst. No followup imaging recommended. However, recommend clinical correlation for symptoms of polycystic ovarian syndrome. 5. 9 mm right adrenal nodule. For incidental adrenal adenomas with =<130 HU average density on portal-venous phase contrast enhanced CT examination, findings are overwhelmingly likely to be benign and no followup imaging is recommended. Fleischner guidelines were followed. Prescriptions: New ondansetron 4 mg tablet,disintegrating 4 mg PO Q6H PRN (Reason: nausea and vomiting) Qty: 14 0RF doxycycline hyclate 100 mg capsule 100 mg PO BID 14 Days Qty: 28 0RF metronidazole 500 mg tablet 500 mg PO BID 14 Days Qty: 28 0RF No Action ondansetron 4 mg tablet,disintegrating 4 mg PO Q8H PRN (Reason: nausea and vomiting) Qty: 20 0RF dicyclomine 20 mg tablet 20 mg PO QID PRN (Reason: abdominal pain) Qty: 20 0RF Referrals: Physician,None [Primary Care Provider] - 2 days Stand Alone Forms: Work/School Release Print Language: Afghan
[2024-04-15] MEDS: Metoclopramide HCl 10 MG/2 ML VIAL IVPUSH (13:24)
[2024-04-15] MEDS: diphenhydrAMINE HCL 50 MG/ML VIAL 25 MG IVPUSH (13:24)
--- NOTE | 2024-04-15 13:37 | PC.NURSE ---
patient a&ox3, repeat labs drawn by tech, pt medicated for continuous vomiting, 01/21 abd pain, family at bedside, will continue to monitor
[2024-04-15 13:56] VITALS: BP 103/76; PULSE 78; RESP 16; TEMP 36.6; O2SAT 97
[2024-04-15 13:57] LABS: Alanine Aminotransferase 26 U/L (0-31); Albumin Level 4.8 g/dL (3.5-5.0); Alkaline Phosphatase 79 U/L (39-117); Anion Gap 15 (12-20); Aspartate Amino Transferase 17 U/L (5-31); Bilirubin Total 0.4 mg/dL (0.0-1.0); Blood Urea Nitrogen 10 mg/dL (9-16); Calcium 10.1 mg/dL (8.4-10.2); Carbon Dioxide 24 mmol/L (22-29); Chloride 108 mmol/L (96-108); Creatinine Clr Calc Pharmacy 78.3; Estimated Glomerular Filt Rate > 60; Glucose Random 105 mg/dL (60-115); Lipase 17 U/L (8-78); Potassium 3.8 mmol/L (3.3-5.1); Sodium 143 mmol/L (135-145)
[2024-04-15 14:10] LABS: HCG Quantitative < 2 mIU/mL
[2024-04-15] MEDS: Haloperidol Lactate 5 MG/ML VIAL 2 MG IVPUSH (14:16)
--- NOTE | 2024-04-15 14:18 | PC.NURSE ---
haldol was initially held until pts quant returned, quant was negative- provider cleared patient to have the haldol as ordered.
--- NOTE | 2024-04-15 14:33 | PC.NURSE ---
pt to CT scan
[2024-04-15] MEDS: iohexoL 350 MG/ML 100 ML INFUS..BTL IV (14:44)
[2024-04-15 16:16] VITALS: BP 97/58; PULSE 78; RESP 18; TEMP 36.6; O2SAT 97
[2024-04-15] MEDS: cefTRIAXone sodium 500 MG VIAL IM (16:29)
--- NOTE | 2024-04-15 16:30 | PC.NURSE ---
pt medicated per order, is now taking po gingerale
[2024-04-15 16:35] VITALS: BP 108/72; PULSE 76; RESP 18; TEMP 36.7; O2SAT 98
[2024-04-16 03:34] LABS: CT PCR NOT DETECTED (Not Detect.); NG PCR NOT DETECTED (Not Detect.)
[2024-04-16 15:22] LABS: Bacterial Vaginosis PCR POSITIVE (Negative); Candida Group PCR DETECTED (Not Detect); Candida glab krusei PCR NOT DETECTED (Not Detect); Trichomonas vaginalis PCR DETECTED (Not Detect)
== END 2024-04-15 16:35 | disposition home or self-care (01) ==
PROVIDERS: Physician Assistant; Emergency Provider Emergency Medicine Emergency Medical Services
DX: R10.9 Unspecified abdominal pain (principal); N76.0 Acute vaginitis; A59.01 Trichomonal vulvovaginitis; N73.0 Acute parametritis and pelvic cellulitis; R11.2 Nausea with vomiting, unspecified; F12.90 Cannabis use, unspecified, uncomplicated; Z79.899 Other long term (current) drug therapy
CPT/HCPCS: 0352U; 36415; 74177; 76856; 80053; 83690; 84702; 85025; 87491; 87591; 93975; 96372; 96374; 96375; 99284; J0696; J1200; J1630; J2405; J2765; Q9967

== ENCOUNTER 2024-11-20 08:01 | Outpatient (AMB) | payer MEDICAID, SELFPAY ==
--- OUTSIDE RECORDS SUMMARY | 2024-11-20 08:05 | XMS_ITS ---
Author Name [facility], [place] Organization Unknown History of Medication Use Medication Directions Dispensed Refills Start Date End Date Stat us No known medications No known medications active Problems Problem Status Onset Date Problem Type Date of Resoluti on Source Physical exam, pre-employment active EncounterDiagnosisAct CT_C [facility] Immunizations Vaccine Date Source Lot Number Status PPD Test 08/18/2024 [facility] [id number] completed Encounters Encounter Type Encounter Reason Primary Diagnosis Location Date Ambulatory Administrative Physical Encounte r for pre-employment examination [facility] 08/21/2024 Care Team Organization Name Specialty Phone Email Start Date End Da te [facility] NO PCP Primary Care 08/22
[2024-11-20 08:06] VITALS: BP 102/68; PULSE 82; RESP 18; TEMP 36.7; O2SAT 98; BMI 25.9
--- NOTE | 2024-11-20 08:06 | A.OFFPC_ITS ---
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 Patient reports decreased vision in the right ear for over a year. She denies any pain in the eye or injury [facility] Medical History (Updated 11/20/24 @ 08:30 by Pallavi Diego MD) No pertinent past medical history Surgical History (Updated 11/20/24 @ 08:12 by JIM Hernandez) Hx of cholecystectomy Hx of tonsillectomy S/P cholecystectomy Family History (Updated 11/20/24 @ 08:33 by Pallavi Diego MD) Father Bone cancer, Onset Age: 37 Hypertension Mother Hypertension Diabetes Mental health disorder Substance use disorder Social History (Updated 11/20/24 @ 08:33 by Pallavi Diego MD) Household Members Other:: 2 boys, works as [employer], Housing: Apartment Alcohol intake: current Alcohol intake frequency: a few times a month Patient Tobacco Use Status: Current everyday Tobacco user Tobacco use type: Cigarette Cigarettes Per Day: 10 e-Cigarette/Vaping Use: Never Used Substance Use Type: Marijuana service: No Current occupational status: employed Cognitive needs: No Hearing needs: No Vision needs: No Questionnaire PHQ-9 Over the last 2 weeks, how often have you been bothered by any of the following problems? 1. Little interest or pleasure in doing things: not at all 2. Feeling down, depressed, or hopeless: not at all 3. Trouble falling or staying asleep, or sleeping too much: nearly every day 4. Feeling tired or having little energy: not at all 5. Poor appetite or overeating: not at all 6. Feeling bad about yourself - or that you are a failure or have let yourself or your family down: not at all 7. Trouble concentrating on things, such as reading the newspaper or watching television: not at all 8. Moving or speaking so slowly that other people could have noticed. Or the opposite - being so fidgety or restless that you have been moving around a lot more than usual: not at all 9. Thoughts that you would be better off or of hurting yourself in some way: not at all Total score: 3 Depression Screening Interpretation: Negative Depression Screening Done: Yes 17487 - PHQ-9 Billing: Yes Source: Developed by Drs. Irineo Taylor, Nicohle Ramires, Stan Awan and colleagues, with an educational juliocesar from [employer]. Thrive Questionnaire Date Thrive assessed: 11/20/24 I am a: Patient What is your living situation today?: I have a steady place to live Within the past 12 months, did the food you bought not last and you didn't have the money to get more?: Sometimes True Within the past 12 months, did you worry whether your food would run out before you got money to buy more?: Sometimes True Do you have trouble paying for medicines?: No Do you have trouble getting transportation to medical appointments?: Yes Do you have trouble paying your heating and electricity bill?: Yes Do you have trouble taking care of your child, family member or friend?: No Do you have trouble with day-to-day activities such as bathing, preparing meals, shopping, managing finances, etc.?: No Are you currently unemployed and looking for a job?: No Are you interested in more education?: Yes Please select the resources that you would like help with: Food, Transportation, Utilities, Job search/training and Education Currently or been in a relationship where the following occur: I choose not to answer THRIVE Score: 4 AUDIT C Alcohol Use Questionnaire (AUDIT-C) 1. How often do you have a drink containing alcohol?: Never 3. How often do you have six or more drinks on one occasion?: Never Total Score: 0 ABDULAZIZ-7 AMB Questionnaire ABDULAZIZ-7 Date ABDULAZIZ - 7 assessed: 11/20/24 Feeling nervous, anxious, or on edge: 1 = Several days Not being able to stop or control worryin = Several days Worrying too much about different things: 1 = Several days Trouble relaxin = Several days Being so restless that it is hard to sit still: 0 = Not at all Becoming easily annoyed or irritable: 1 = Several days Feeling afraid as if something awful might happen: 1 = Several days Total ABDULAZIZ-7 score (0-4 normal; 5-9 mild; 10-14 moderate; 15-21 severe): 6 Source: Developed by Drs. Irineo Taylor, Nichole Ramires, Stan Awan and colleagues, with an educational juliocesar from [employer]. ABDULAZIZ-7 Assessment Billing ABDULAZIZ-7 Assessment Tool: ABDULAZIZ-7 Assessment 52970 Review of Systems Const All systems reviewed & are unremarkable except as noted in HPI and below Reports no additional complaints Eyes Reports no additional complaints ENT Reports no additional complaints Card Reports no additional complaints Resp Reports no additional complaints GI Reports no additional complaints Physical exam (Primary Care) Vital Signs: Last Vital Signs Temp 98.0 F 11/20/24 08:06 Pulse 82 11/20/24 08:06 Resp 18 11/20/24 08:06 BP 102/68 11/20/24 08:06 Pulse Ox 98 11/20/24 08:06 Oxygen Delivery Method Room Air 11/20/24 08:06 BMI result Body Mass Index 25.9 Tobacco/Smoking Status: Tobacco use Status Tobacco use date assessed 11/20/24 11/20/24 08:18 Patient Tobacco Use Status Current everyday Tobacco 11/20/24 08:18 Tobacco use type Cigarette 11/20/24 08:18 e-Cigarette/Vaping Use Never Used 11/20/24 08:18 PHQ-9: PHQ-9 Score PHQ-9: Total score 3 11/20/24 08:18 Depression Screening Interpretation: Negative Thrive Assessment: Date of Thrive Assessment Date Thrive assessed 11/20/24 11/20/24 08:18 Currently or been in a relationship where the following occur: I choose not to answer Const General: no acute distress HENMT Head: Yes normal to inspection Ears: hearing grossly normal bilaterally General nose exam: Normal external nose present Face and sinus: Yes normal facial exam Mouth: Normal oral and palatal mucosa present Eyes General: appearance normal, both eyes and all related structures Neck Neck: Yes no lymphadenopathy and Yes supple Resp Effort & Inspection: normal respiratory effort Auscultation: clear to auscultation bilaterally Cardio Rhythm: regular rhythm Heart sounds: S1 normal heart sound present and S2 normal heart sound present GI Inspection: Yes normal to inspection Palpation (GI): Soft to palpation Percussion: Yes normal to percussion Auscultation: normal bowel sounds Coding Level of Care Code New Pt Prev Care 18-39yr(94132 Diagnoses Blurring, right eye H53.8 Annual physical exam Z00.00 Additional Codes ABDULAZIZ-7 Assessment Billing - ABDULAZIZ-7 Assessment Tool: ABDULAZIZ-7 Assessment 35890 ([id number]) PHQ-9 - 95541 - PHQ-9 Billing: Yes ([id number]) Assessment & Plan Assessment & Plan (1) Blurring, right eye: Code(s): H53.8 - Other visual disturbances Category: Medical Plan: Referred to Ophthalmology (2) Annual physical exam: Code(s): Z00.00 - Encounter for general adult medical examination without abnormal findings Category: Medical Plan: Well-balanced diet regular physical activity tobacco quitting discussed with the patient. She will have a fasting blood work today. Patient will schedule an appointment with manager of sales for pelvic exam and Pap smear Orders: Orders Complete Blood Count Auto Diff Today Z00.00 - Encounter for general adult medical examination without abnormal findings Comprehensive [place]. Panel Fast Today Z00.00 - Encounter for general adult medical examination without abnormal findings Lipid Panel Today Z00.00 - Encounter for general adult medical examination without abnormal findings TSH reflex Free T4 Today Z00.00 - Encounter for general adult medical e xamination without abnormal findings HIV Ab/Ag Today Z00.00 - Encounter for general adult medical examination without abnormal findings Hepatitis B,C Profile Today Z00.00 - Encounter for general adult medical examination without abnormal findings T Spot TB Today Z00.00 - Encounter for general adult medical examination without abnormal findings Syphilis Screen Today Z00.00 - Encounter for general adult medical examination without abnormal findings CT NG by PCR Today Z00.00 - Encounter for general adult medical examination without abnormal findings UA w Microscopic Today Z00.00 - Encounter for general adult medical examination without abnormal findings Referrals Ophthalmology Referral H53.8 - Other visual disturbances Medications: Discontinued ondansetron Discontinued Reason: Patient Completed Course 4 mg PO Q8H PRN 20 tabs 0RF nausea and vomiting ondansetron Discontinued Reason: Patient Completed Course 4 mg PO Q6H PRN 14 tabs 0RF nausea and vomiting doxycycline hyclate Discontinued Reason: Patient Completed Course 100 mg PO BID 14 days 28 caps 0RF dicyclomine Discontinued Reason: Patient Completed Course 20 mg PO QID PRN 20 tabs 0RF abdominal pain metronidazole Discontinued Reason: Patient Completed Course 500 mg PO BID 14 days 28 tabs 0RF fluconazole may repeat second dose 72 hrs after first dose if symptoms persist Discontinued Reason: Patient Completed Course 150 mg PO Q3D 2 tabs 0RF
== END 2024-11-20 09:35 | disposition home or self-care (01) ==
LOC: HO.HMCC 08:02
PROVIDERS: PCP Internal Medicine; Visit Provider Internal Medicine
DX: H53.8 Other visual disturbances (principal); Z00.00 Encounter for general adult medical examination without abnormal findings

== ENCOUNTER 2024-11-20 08:01 | Outpatient (REF) | payer MEDICAID, SELFPAY ==
[2024-11-20 10:12] LABS: MANUAL DIFF FLAG NO
[2024-11-20 10:23] LABS: Basophils Absolute Auto 0.1 X10*3/uL (0.0-0.2); Eosinophils Absolute Auto 0.1 X10*3/uL (0.0-0.4); Eosinophils Percent Auto 1.1 % (0-4); Hematocrit 42.3 % (37.0-47.0); Hemoglobin 14.7 g/dl (12.0-16.0); Imm Gran Abs Auto 0.03 X10*3/uL (0.00-0.03); Imm Gran Pct Auto 0.4 % (0.0-0.4); Lymphocytes Absolute Auto 1.6 X10*3/uL (1.2-4.9); Lymphocytes Percent Auto 19.9 % (20-40); Mean Corpuscular HGB Conc 34.8 g/dl (31.0-35.0); Mean Corpuscular Hemoglobin 31.3 pg (27.0-33.0); Mean Platelet Volume 10.6 fL (9.4-12.3); Monocytes Absolute Auto 0.6 X10*3/uL (0.1-1.2); Monocytes Percent Auto 7.2 % (2-11); Neutrophils Absolute Auto 5.6 x10*3/uL (2.0-8.3); Neutrophils Percent Auto 70.4 % (45-73); Platelet Count 253 X10*3/uL (160-400); Red Cell Distribution Width 12.6 % (11.0-16.0)
[2024-11-20 10:45] LABS: Appearance Urine Clear; Color Urine Yellow; Glucose Urine UA Negative (Negative); Leukocyte Esterase Urine Small (1+) (Negative); Nitrite Urine Negative (Negative); PH 5.5 (5.0-9.0); UMIC TRIGGER UA YES; Urine Blood Negative (Negative); Urine Ketones Negative (Negative); Urine Protein Negative (Neg-Trace)
[2024-11-20 10:56] LABS: Alanine Aminotransferase 34 U/L (0-31); Albumin Level 4.7 g/dL (3.5-5.0); Alkaline Phosphatase 76 U/L (39-117); Anion Gap 10 (12-20); Aspartate Amino Transferase 15 U/L (5-31); Bilirubin Total 0.2 mg/dL (0.0-1.0); Blood Urea Nitrogen 11 mg/dL (9-16); Calcium 9.2 mg/dL (8.4-10.2); Carbon Dioxide 24 mmol/L (22-29); Chloride 109 mmol/L (96-108); Cholesterol 164 mg/dL (<200); Estimated Glomerular Filt Rate > 60; Glucose Fasting 99 mg/dL (60-99); HDL Cholesterol 48 mg/dL (>40); LDL Cholesterol Calculated 102 mg/dL (<100); Potassium 4.1 mmol/L (3.3-5.1); Sodium 139 mmol/L (135-145); TSH reflex Free T4 0.95 uIU/mL (0.32-4.0); Total Protein 7.4 g/dL (6.5-8.0); Triglycerides 71 mg/dL (<150)
[2024-11-20 11:01] LABS: Syphilis Screen Nonreactive (Nonreactive)
[2024-11-20 11:06] LABS: HBS Num1 > 1000.00 mIU/mL (0-7.99); HBsAGNum1 0.47 S/CO (0.00-0.99); HIV AB/AG Nonreactive (Nonreactive); HIV Num 1 0.06 S/CO (0.00-0.99); Hepatitis B Core Antibody Nonreactive (Nonreactive); Hepatitis B Surface Antigen Negative (Negative); ~HepC Num1 0.15 S/CO (0.00-0.79); ~Hepatitis B Surface Antibody REACTIVE (Nonreactive); ~Hepatitis C Antibody Nonreactive (Nonreactive)
[2024-11-20 11:24] LABS: Bacteria Urine 4+ (None Seen); Hyaline Casts Urine 0-2 /LPF (0-2); RBC Urine 0-2 /HPF (0-2)
[2024-11-20 13:08] LABS: CT PCR NOT DETECTED (Not Detect.); NG PCR NOT DETECTED (Not Detect.)
[2024-11-23 01:22] LABS: TS Negative Control Passed; TS Panel A 0; TS Panel B 0; TS Positive Control Passed; TSpotTB Negative (Negative)
== END 2024-11-20 08:02 | disposition home or self-care (01) ==
LOC: HO.HMGCLDS 08:01
PROVIDERS: PCP Internal Medicine; Visit Provider Internal Medicine
DX: Z00.00 Encounter for general adult medical examination without abnormal findings (principal); H53.8 Other visual disturbances
CPT/HCPCS: 80053; 80061; 81001; 84443; 85025; 86481; 86704; 86706; 86780; 86803; 87340; 87389; 87491; 87591; 96127; 99385

== ENCOUNTER 2025-02-08 15:45 | Emergency (ER) | payer MEDICAID, SELFPAY ==
--- OUTSIDE RECORDS SUMMARY | 2025-02-08 16:52 | XMS_ITS | Clinical Summary ---
Author Organization [employer] Address [address] [place] [address] Care Team Providers Care Licensed Physical Therapy Assistant Name Role Phone Unavailable Primary Care Provider Unavailabl e Social History Tobacco Use Types Packs/Day Years Used Date Smoking Tobacco: Never Assessed Comments Unknown Sex and Gender Information Value Date Recorded Sex Assigned at Not on file Legal Sex Female 11:59 AM EDT Gender Identity Not on file Sexual Orientation Not on file Plan of Treatment Health Maintenance Due Date Last Done Comments Depression Screening 1990 HIV Screening 1990 SDOH Screening 1990 Disability Screening 1990 Alcohol/Substance Use Screening 2002 Tobacco Screening 2002 Family Planning (PISQ) 2005 HPV Vaccines (1 - 3-dose series) 2005 Hepatitis C Screening 01/03/2008 DTaP/Tdap/Td Vaccines (1 - Tdap) 2009 Hepatitis B Vaccines (1 of 3 - 19+ 3-dose series) 2009 Pap Smear 2011 Cervical Cancer Screening 01/03/2020 HPV/Cotest 01/03/2020 COVID-19 Vaccine (1 - 2023-2 5 season) 2024 Influenza Vaccine (#1) 2025 Zoster Vaccines (1 of 2) 01/03/2040 RSV Patients and Pa tients Aged 60 years or older (1 - 1-dose 75+ series) 2065 HIB Vaccines Aged Out No longer eligi ble based on patient's age to complete this topic Hepatitis A Vaccines Aged Out No long er eligible based on patient's age to complete this topic IPV Vaccines Aged Out No longer eligi ble based on patient's age to complete this topic Meningococcal B Vaccine Aged Out No l onger eligible based on patient's age to complete this topic Meningococcal Vaccine Aged Out No shan samantha eligible based on patient's age to complete this topic Pneumococcal Vaccine: Pediat rics (0 to 5 Years) and At-Risk Patients (6 to 49) Years Aged Out No longer eligible b ased on patient's age to complete this topic RSV under 20 months Aged Out No longe r eligible based on patient's age to complete this topic Rotavirus Vaccines Aged Out No longer eligible based on patient's age to complete this topic
--- OUTSIDE RECORDS SUMMARY | 2025-02-08 16:52 | XMS_ITS ---
Author Name [facility] Organization Unknown History of Medication Use Medication Directions Dispensed Refills Start Date End Date Stat us No known medications No known medications active Allergies Allergen Reaction Severity Comment Documented Date Source Statu s NAPROXEN SWELLING 08/21/2024 [facility] active Problems Problem Status Onset Date Problem Type Date of Resoluti on Source Physical exam, pre-employment active EncounterDiagnosisAct [facility] Immunizations Vaccine Date Source Lot Number Status PPD Test 08/18/2024 [facility] [id number] completed Encounters Encounter Type Encounter Reason Primary Diagnosis Location Date Ambulatory Administrative Physical Encounte r for pre-employment examination [facility] 08/21/2024 Care Team Organization Name Specialty Phone Email Start Date End Da te [facility] NO PCP Primary Care 08/22
== END 2025-02-08 17:10 | disposition left against medical advice (07) ==
PROVIDERS: Emergency Provider Emergency Medicine
DX: Z04.1 Encounter for examination and observation following transport accident (principal); M54.50 Low back pain, unspecified; Z53.21 Procedure and treatment not carried out due to patient leaving prior to being seen by health care provider